=== PATIENT | female | born 1940 | race Caucasian/White ===

== ENCOUNTER 2018-05-08 03:28 | Emergency (ER) | payer MEDICARE, MEDICAID ==
[~2018-05-08] VITALS: Ht 170.2 cm; Wt 65.8 kg
[2018-05-08] MEDS ORDERED: SODIUM CHLORIDE 0.9% 500 ML IV ONE (07:23)
[2018-05-08] MEDS ORDERED: SODIUM CHLORIDE 0.9% 250 ML IV ONE (07:23)
[2018-05-08 07:49] LABS: Basophils # (auto) 0 uL; Basophils % (auto) 0.5 % (0.0-2.0); Eosinophils # (auto) 0.2 uL; Eosinophils % (auto) 2.9 % (0.0-7.0); Hemoglobin 14.7 g/dL (12.2-16.2); Lymphocytes % (auto) 17.2 % (10.0-50.0); Mean Corpuscular Hemoglobin 31.8 pg (28.0-32.0); Mean Corpuscular Hgb Conc. 34.1 g/dL (32.0-36.0); Mean Corpuscular Volume 93.3 fL (80.0-100.0); Monocytes # (auto) 0.5 uL; Monocytes % (auto) 8.1 % (0.0-12.0); Neutrophils # (auto) 4.3 uL; Neutrophils % (auto) 71.3 % (37.0-80.0); Nucleated Red Blood Cells % 0.1 %; Platelet Count (auto) 169 10^3/uL (140-450); Red Blood Cells 4.61 10^6/uL (4.0-5.20); Red Cell Distribution Width 14.3 % (11.8-14.3)
[2018-05-08 07:57] LABS: BUN/Creatinine Ratio 18.8; Calcium 8.8 mg/dL (8.5-10.1); Magnesium 2.3 mg/dL (1.6-2.6); Potassium 3.6 mmol/L (3.5-5.1)
[2018-05-08 08:00] LABS: Bilirubin, Total 0.3 mg/dL (0.2-1.0); Total Protein 7.8 g/dL (6.4-8.2)
[2018-05-08 11:13] VITALS: BP 132/81
[2018-05-08 11:48] LABS: Urine Bacteria FEW /hpf (None Seen); Urine Blood Negative /uL (Negative); Urine Specific Gravity 1.008 (1.001-1.035); Urine WBC 1 /hpf (0 - 5)
== END 2018-05-08 13:19 | disposition home or self-care (01) ==
LOC: EDBD 03:28 → ER 03:32
DX: E11.649 Type 2 diabetes mellitus with hypoglycemia without coma (principal); G93.41 Metabolic encephalopathy; M19.90 Unspecified osteoarthritis, unspecified site; J44.9 Chronic obstructive pulmonary disease, unspecified; F17.210 Nicotine dependence, cigarettes, uncomplicated; Z90.49 Acquired absence of other specified parts of digestive tract; Z90.710 Acquired absence of both cervix and uterus; Z88.2 Allergy status to sulfonamides; Z79.4 Long term (current) use of insulin
CPT/HCPCS: 36415; 71045; 80053; 81001; 83735; 85025; 93005; 99284; J7030

== ENCOUNTER 2019-11-13 17:24 | Inpatient (IN) | payer MEDICARE, MEDICAID ==
[~2019-11-13] VITALS: Ht 157.5 cm; Wt 55.8 kg
[2019-11-13 20:23] LABS: Basophils # (auto) 0 10 ^3/uL (0-0.2); Basophils % (auto) 0.3 % (0.0-2.0); Eosinophils # (auto) 0.1 10 ^3/uL (0-0.8); Eosinophils % (auto) 1.8 % (0.0-7.0); Hematocrit 38.1 % (36.0-46.0); Hemoglobin 12.8 g/dL (12.2-16.2); Lymphocytes # (auto) 0.9 10 ^3/uL (0.4-5.4); Lymphocytes % (auto) 11.2 % (10.0-50.0); Mean Corpuscular Hgb Conc. 33.6 g/dL (32.0-36.0); Mean Corpuscular Volume 98.3 fL (80.0-100.0); Monocytes # (auto) 0.1 10 ^3/uL (0-1.3); Monocytes % (auto) 1.7 % (0.0-12.0); Nucleated Red Blood Cells % 0.1 %; Platelet Count (auto) 195 10^3/uL (140-450); Red Blood Cells 3.88 10^6/uL (4.0-5.20); Red Cell Distribution Width 14.9 % (11.8-14.3); White Blood Cell 8.3 10^3/uL (4.4-10.8)
[2019-11-13 20:37] LABS: INR 1.08 (0.9-1.15); Partial Thromboplastin Time 26.4 sec (23.0-31.2)
[2019-11-13 20:39] LABS: Albumin 3.7 g/dL (3.4-5.0); Calcium 9.1 mg/dL (8.5-10.1); Potassium 4.1 mmol/L (3.5-5.1)
[2019-11-13 20:47] LABS: Bilirubin, Total 0.4 mg/dL (0.2-1.0); Total Protein 7.6 g/dL (6.4-8.2)
[2019-11-14] MEDS ORDERED: ONDANSETRON HCL 4 MG/2 ML VIAL IV PRN (00:45)
[2019-11-14] MEDS ORDERED: TEMAZEPAM 15 MG CAP PO PRN (00:45)
[2019-11-14] MEDS ORDERED: DEXTROSE (50%) 50ML SYRG IV PRN (00:45)
[2019-11-14] MEDS ORDERED: ACETAMINOPHEN 325 MG TAB PO PRN (00:45)
[2019-11-14] MEDS ORDERED: cefTRIAXone 1GM/50ML D5W 50 ML IV ONE (00:45)
[2019-11-14] MEDS ORDERED: NITROGLYCERIN 0.4 MG SL TAB SL PRN (01:15)
[2019-11-14] MEDS ORDERED: MORPHINE SULF INJ 2 MG/ML SYRINGE 1ML IV PRN (01:15)
[2019-11-14] MEDS: HYDROcodone-ACET 5/325MG TAB PO PRN ×2 (02:45→21:23)
[2019-11-14] MEDS: CLINDAMYCIN 600MG IV 50 ML IV SCH ×3 (06:13→21:22)
[2019-11-14] MEDS: InsuLIN REG 1unit/0.01ml Soln (100units/ml) SC SCH ×4 (06:17→23:53)
[2019-11-14] MEDS: ACCU-CHEK COMFORT CURVE STRIP VI SCH ×4 (06:18→23:52)
[2019-11-14] MEDS: cefTRIAXone 1GM/50ML D5W 50 ML IV SCH (09:03)
[2019-11-14] MEDS: FAMOTIDINE 20 MG TAB PO SCH ×2 (09:59→21:22)
[2019-11-14] MEDS ORDERED: BACITRACIN TOP OINT 1 UD PKG TOP ONE (10:45)
--- NOTE | 2019-11-14 16:47 | NUR ---
PATIENT ARRIVED TO THE FLOOR. NO REPORT RECEIVED. PATIENT SHOWS NO SIGNS OF DISTRESS AT THIS TIME.
[2019-11-14] MEDS ORDERED: CELE1CAP8 PO (17:08)
[2019-11-14] MEDS ORDERED: TEMA15CA PO (17:08)
[2019-11-14] MEDS ORDERED: METF-370 PO (17:08)
[2019-11-14] MEDS ORDERED: ATOR20TA50 PO (17:08)
--- NOTE | 2019-11-14 20:00 | NUR ---
Opening Shift Note Assumed care of patient, awake and alert. No S/S of distress/SOB or pain. Instructed on POC and to call for assist PRN, will continue to monitor for changes Q1hr and PRN.
[2019-11-14 22:00] VITALS: BP 109/64
[2019-11-15 05:00] VITALS: BP 120/43
[2019-11-15] MEDS: HYDROcodone-ACET 5/325MG TAB PO PRN ×2 (05:52→19:24)
[2019-11-15] MEDS: ACCU-CHEK COMFORT CURVE STRIP VI SCH ×3 (05:53→17:55)
[2019-11-15] MEDS: InsuLIN REG 1unit/0.01ml Soln (100units/ml) SC SCH ×3 (05:53→17:55)
[2019-11-15] MEDS: CLINDAMYCIN 600MG IV 50 ML IV SCH ×2 (05:53→15:06)
--- NOTE | 2019-11-15 07:38 | NUR ---
Care report given to Hawa Prasad, patient is resting no distress.
--- NOTE | 2019-11-15 07:45 | NUR ---
RECEIVED REPORT AND ASSUMED CARE OF PT. A/OX4. DENIED S/S ACUTE DISTRESS. UPDATE PT WITH POC. BED AT LOWEST POSITION. CALL LIGHT AND BELONGINGS WITHIN REACH. WILL CONT TO MONITOR.
[2019-11-15 09:00] VITALS: BP 95/62
[2019-11-15 09:37] LABS: Basophils # (auto) 0 10 ^3/uL (0-0.2); Basophils % (auto) 0.3 % (0.0-2.0); Eosinophils # (auto) 0.2 10 ^3/uL (0-0.8); Eosinophils % (auto) 2.8 % (0.0-7.0); Hematocrit 37.3 % (36.0-46.0); Hemoglobin 12.7 g/dL (12.2-16.2); Lymphocytes % (auto) 13.9 % (10.0-50.0); Mean Corpuscular Hemoglobin 33.3 pg (28.0-32.0); Mean Corpuscular Volume 97.9 fL (80.0-100.0); Monocytes # (auto) 0.3 10 ^3/uL (0-1.3); Monocytes % (auto) 3.5 % (0.0-12.0); Neutrophils # (auto) 5.8 10 ^3/uL (1.6-8.6); Neutrophils % (auto) 79.5 % (37.0-80.0); Platelet Count (auto) 229 10^3/uL (140-450); Red Blood Cells 3.81 10^6/uL (4.0-5.20); White Blood Cell 7.3 10^3/uL (4.4-10.8)
[2019-11-15] MEDS: FAMOTIDINE 20 MG TAB PO SCH ×2 (10:04→22:00)
[2019-11-15] MEDS: cefTRIAXone 1GM/50ML D5W 50 ML IV SCH (10:05)
--- NOTE | 2019-11-15 11:14 | NUR ---
WOUND CARE NOTE: Wound care in to see patient per wound care request regarding multiple wounds that are noted present on admission. Bedside nurse took photograph of patient's wounds upon admission for reference. Patient is 79 years old female with admitting diagnosis of Bilateral Foot Ulcer with Infection. Patient is resting in bed in Rm. 271B. Patient is awake, alert and oriented. Patient is ambulatory and self turning and repositioning; her Neil score is 20. Noted patient's plantar aspect of bilateral great toe (Rt. 0.8x1.5cm, Lt 1x1.5cm) has open full thickness ulcer with no measurable depth. R great toe wound has dark brown callous, L plantar great toe wound has clean red wound bed, kota wound is yellow hyperkeratotic ring. Her dorsal R 2nd toe also noted with 1.2x1.5cm open ulcer.Minimal serous drainage noted, no odor noted, Her Rt index finger palmar aspect also noted with 1.2x1.5cm open ulcer with red clean wound bed, pink kota wound. Patient reported that she has had the wounds for four months, will get better and open again. She added that she' seen by Dr. Saenz and sent to E.D. Cleansed patient's wounds with wound cleanser, patted dry with gauze, applied Thera honey gel, covered L index finger and R 2nd toe wounds with Band aid. Covered bilateral plantar great toe with Opti foam and secured with Co Ban. Patient tolerated well and denies any other wound. Bed in low position, call johnson on hand with all safety precautions in placed. RECOMMENDATION: Nursing to continue with Daily/PRN dressing change to multiple wounds per MD order,Podiatry consult, redistribute pressure points with pillows, continue monitoring by wound care while patient is hospitalized Addendum: 11/15/19 at 1609 by Maribel Vega RN Amended: Links added.
[2019-11-15 11:19] LABS: BUN/Creatinine Ratio 13.1; Potassium 4.4 mmol/L (3.5-5.1)
[2019-11-15 13:00] VITALS: BP 101/67
[2019-11-15 20:00] VITALS: BP 114/72
[2019-11-15 21:55] VITALS: BP 110/69
--- NOTE | 2019-11-15 22:00 | NUR ---
Clidamycin 2200 dose not given because no IV access, An Iv was placed but then it was little late. Next dose was given.
[2019-11-16] MEDS: InsuLIN REG 1unit/0.01ml Soln (100units/ml) SC SCH ×4 (00:25→18:15)
[2019-11-16 05:00] VITALS: BP 128/61
[2019-11-16] MEDS: CLINDAMYCIN 600MG IV 50 ML IV SCH ×3 (05:57→22:06)
[2019-11-16] MEDS: ACCU-CHEK COMFORT CURVE STRIP VI SCH ×4 (06:25→18:14)
[2019-11-16 09:00] VITALS: BP 96/35
[2019-11-16] MEDS: cefTRIAXone 1GM/50ML D5W 50 ML IV SCH (10:03)
[2019-11-16] MEDS: FAMOTIDINE 20 MG TAB PO SCH ×2 (10:03→22:05)
--- NOTE | 2019-11-16 11:56 | NUR ---
Consult Consider adding MVI and Vitamin C 500 mg BID Est energy needs 2168-0466 kcal (25-30 kcal/kg BW 57.6g) Est protein needs 58-64g (1-1.1g/kg BW 57.6kg, r/t wounds, questionable wt loss) will reassess prn. Addendum: 11/16/19 at [address] Amended: Links added.
[2019-11-16] MEDS: HYDROcodone-ACET 5/325MG TAB PO PRN ×3 (12:02→22:05)
[2019-11-16 13:00] VITALS: BP 116/58
--- NOTE | 2019-11-16 19:05 | NUR ---
Opening Shift Note Assumed care of patient, awake and alert. No S/S of distress/SOB or pain. Instructed on POC and to call for assist PRN, will continue to monitor for changes Q1hr and PRN. Bed locked in lowest position, HOB elevated at least 30 degrees, side rails up x 2 and call light is within reach.
[2019-11-16 22:00] VITALS: BP 103/60
--- NOTE | 2019-11-16 23:00 | NUR ---
IV insertion IV access obtained, via clean sterile technique by inserting 22 gauge catheter at Right Hand after 1 attempt. IV secured properly. No trauma to site. Patient tolerated well. Addendum: 11/17/19 at 0608 by CECILIA ROSE RN RN LEFT HAND
[2019-11-17] MEDS: ACCU-CHEK COMFORT CURVE STRIP VI SCH ×5 (00:29→23:35)
[2019-11-17] MEDS: InsuLIN REG 1unit/0.01ml Soln (100units/ml) SC SCH ×5 (00:29→23:48)
--- NOTE | 2019-11-17 04:31 | NUR ---
UA UA collected and sent to lab
[2019-11-17 05:04] LABS: Urine WBC None Seen /hpf (0 - 5)
[2019-11-17 05:20] LABS: Urine Bacteria NONE SEEN /hpf (None Seen); Urine Blood Negative /uL (Negative); Urine Specific Gravity 1.007 (1.001-1.035)
[2019-11-17] MEDS: CLINDAMYCIN 600MG IV 50 ML IV SCH ×3 (06:15→22:06)
[2019-11-17 06:59] VITALS: BP 137/73
--- NOTE | 2019-11-17 07:28 | NUR ---
CLOSING SHIFT NOTE ENDORSED CARE TO DAY SHIFT RN
[2019-11-17] MEDS: FAMOTIDINE 20 MG TAB PO SCH ×2 (08:50→22:06)
[2019-11-17 08:55] VITALS: BP 120/71
[2019-11-17] MEDS: cefTRIAXone 1GM/50ML D5W 50 ML IV SCH (09:09)
[2019-11-17 15:04] VITALS: BP 110/65
[2019-11-17] MEDS: HYDROcodone-ACET 5/325MG TAB PO PRN ×2 (15:34→20:31)
[2019-11-17 17:00] VITALS: BP 114/87
--- NOTE | 2019-11-17 17:09 | NUR ---
PT REFUSED BLE ANGIOGRAM. DR MOREIRA AWARE. TO MRI AND MRI PERSONELL STATED THAT PT COMPLAINED OF BURNING IN LOWER EXTREMITIES, SO COULD NOT PROCEED WITH MRI.
--- NOTE | 2019-11-17 17:45 | NUR ---
PT OFF FLOOR TO SMOKE MULTIPLE TIMES, UNABLE TO HANG ABX OR GET BLOOD SUGAR AT THIS TIME
[2019-11-17 21:59] VITALS: BP 116/69
[2019-11-18 05:00] VITALS: BP_SYST 124; BP_SYST 95; BP_DIAS 53; BP_DIAS 71
[2019-11-18] MEDS: ACCU-CHEK COMFORT CURVE STRIP VI SCH ×3 (06:44→15:15)
[2019-11-18] MEDS: CLINDAMYCIN 600MG IV 50 ML IV SCH ×3 (06:51→21:32)
[2019-11-18] MEDS: InsuLIN REG 1unit/0.01ml Soln (100units/ml) SC SCH ×3 (06:59→18:00)
[2019-11-18] MEDS: cefTRIAXone 1GM/50ML D5W 50 ML IV SCH (09:00)
[2019-11-18 09:41] VITALS: BP 117/61
[2019-11-18] MEDS ORDERED: LORazepam 2MG/ML-1ML VIAL IV ONE (10:15)
--- NOTE | 2019-11-18 10:22 | NUR ---
C/O BLEEDING TO THE RIGHT GREAT TOE. 2X2 GAUZE AND PAPER TAPE APPLIED
[2019-11-18] MEDS: FAMOTIDINE 20 MG TAB PO SCH ×2 (11:00→21:31)
[2019-11-18 13:23] VITALS: BP 92/76
--- NOTE | 2019-11-18 16:27 | NUR ---
PT WAS OUT OF HER ROOM WHEN RADIOLOGY CAME TO GET HER FOR MRI. SHE TRAVELS ABOUT HOSPITAL OFTEN. SHE RETURNS FROM MRI. UNABLE TO OBTAIN SUITABLE IMAGES DUE TO HER NOT REMAINING STILL EVEN WITH 1MG ATIVAN IV ON ADMINISTERED JUST PRIOR TO HER LEAVING FOR RADIOLOGY
[2019-11-18 16:36] VITALS: BP 124/64
--- NOTE | 2019-11-18 20:10 | NUR ---
PATIENT'S IV IS MISSING. STARTED A NEW IV ACCESS ON THE RIGHT WRIST, GAUGE 22. BENIGN AND PATENT.
[2019-11-18 22:00] VITALS: BP 117/62
--- NOTE | 2019-11-18 22:40 | NUR ---
PATIENT KEPT GETTING OUT OF BED. PATIENT ON AND OFF CONFUSION. SHE WAS BITING ON HER IV ACCESS WELL. REORIENTATION DONE. STAYED WITH PATIENT FOR SAFETY. VERY UNCOOPERATIVE. PAGED CHARGE NURSE AND MADE HIM AWARE OF THE SITUATION.
[2019-11-19 05:28] VITALS: BP 112/58
[2019-11-19] MEDS: ACCU-CHEK COMFORT CURVE STRIP VI SCH ×3 (05:53→12:00)
[2019-11-19] MEDS: InsuLIN REG 1unit/0.01ml Soln (100units/ml) SC SCH ×2 (05:53)
[2019-11-19] MEDS: CLINDAMYCIN 600MG IV 50 ML IV SCH (06:00)
[2019-11-19 09:00] VITALS: BP 108/45
--- NOTE | 2019-11-19 09:30 | NUR ---
PT NOW LOCATED IN ROOM 274A WITH SITTER IN ROOM. MOSTLY SLEEPING THIS AM.
[2019-11-19] MEDS: cefTRIAXone 1GM/50ML D5W 50 ML IV SCH (10:30)
[2019-11-19] MEDS ORDERED: NICOTINE 7MG/24HR TOPICAL PATCH TD ONE (10:45)
[2019-11-19 13:00] VITALS: BP 102/64
--- NOTE | 2019-11-19 13:00 | NUR ---
DETAILED CONVERSATION RE: DZ PROCESS CREATING DECREASED BLOOD FLOW TO EXTREMITIES. USED EXAMPLE OF ARTERIAL FLOW LIKE PLUMBING THAT BECOMES CLOGGED. DISCUSSED HOW RESTORING BLOOD FLOW COULD BE POSSIBLE. EXPLAINED HOW ANGIOGRAM WORKS. EXPLAINED POSSIBILITY OF OUT PATIENT TREATMENT OF PTCA STENTING. PT IS AGREEABLE TO TRY OUT PT TO SEE IF RESULTS COULD BE HAD. DISCUSSED THE PHYSICAL EFFECTS OF SMOKING ON HER PVD. OFFERED PRACTICAL STRATEGIES TO STOP SMOKING. PLACED NICOTINE PATCH. GAINED PERMISSION TO SPEAK WITH HER DAUGHTER RADHA WHO HAS CALLED FOR INFORMATION ABOUT HER COURSE OF CARE. CALL TO PT'S SISTER TATIANNA NO ANSWER. MESSAGE LEFT ASKING TO BRING CLOTHING FOR THE PATIENT TO WEAR HOME.
--- NOTE | 2019-11-19 13:52 | NUR ---
assessment Patient is a 79 year old female who is on and off confusion. Patient is very irritated due to needing to smoke. Per patient sister Jenna patient is a 60+ year smoker. Patients PCP is Dr Shultz and Dr Saenz. Patient has a rollator, fww, cane and oxygen for home use. Patient is on service with [facility], [facility]. Patient is to resume with [facility] on discharge. Patients sister Jenna will transport patient home today at 4pm. Jenna verbalized understanding and agreed to discharge plan home. Addendum: 11/19/19 at 1358 by Sofiya SIDHU Amended: Links added.
--- NOTE | 2019-11-19 16:38 | NUR ---
PT DRESSES INTO CLOTHING PROVIDED BY FAMILY. DC INSTRUCTIONS PROVIDED. HAS ALL PERSONAL BELONGINGS. TO WAITING PRIVATE VEHICLE IN .
[2019-11-20] MEDS ORDERED: NICOTINE 7MG/24HR TOPICAL PATCH TD SCH (10:00)
== END 2019-11-19 16:30 | disposition home health service (06) | DRG 380 ==
LOC: ER 17:24 → OVERFLOW 17:25 → WEST WING 11-14 16:55
PROVIDERS: ADMIT Nurse Practitioner; ATTEND Family Medicine
DX: E11.621 Type 2 diabetes mellitus with foot ulcer (principal); L97.519 Non-pressure chronic ulcer of other part of right foot with unspecified severity; L97.529 Non-pressure chronic ulcer of other part of left foot with unspecified severity; E11.51 Type 2 diabetes mellitus with diabetic peripheral angiopathy without gangrene; E11.65 Type 2 diabetes mellitus with hyperglycemia; B99.8 Other infectious disease; J44.9 Chronic obstructive pulmonary disease, unspecified; I70.201 Unspecified atherosclerosis of native arteries of extremities, right leg; E78.5 Hyperlipidemia, unspecified; E78.00 Pure hypercholesterolemia, unspecified; F17.210 Nicotine dependence, cigarettes, uncomplicated; I10 Essential (primary) hypertension; L08.9 Local infection of the skin and subcutaneous tissue, unspecified; M19.90 Unspecified osteoarthritis, unspecified site; M85.80 Other specified disorders of bone density and structure, unspecified site; Z53.20 Procedure and treatment not carried out because of patient's decision for unspecified reasons; Z83.3 Family history of diabetes mellitus; Z90.710 Acquired absence of both cervix and uterus; Z91.19 Patient's noncompliance with other medical treatment and regimen; Z90.49 Acquired absence of other specified parts of digestive tract; Z88.2 Allergy status to sulfonamides; Z79.4 Long term (current) use of insulin; M84.475A Pathological fracture, left foot, initial encounter for fracture
CPT/HCPCS: 36415; 71045; 73630; 73700; 80048; 80053; 81001; 82962; 83036; 85025; 85610; 85652; 85730; 86850; 86900; 86901; 87040; 87205; 93005; 93925; G0378; J0696; J1815; J3490

== ENCOUNTER 2021-01-19 04:33 | Emergency (ER) | payer MEDICARE, MEDICAID ==
[~2021-01-19] VITALS: Ht 165.1 cm; Wt 54.4 kg
[~2021-01-19 04:33] MED LIST: ATOR20TA50 PO; CELE1CAP8 PO; METF-370 PO; TEMA15CA PO
[2021-01-19] MEDS ORDERED: SODIUM CHLORIDE 0.9% 1,000 ML IV ONE (07:15)
[2021-01-19 07:40] LABS: Basophils # (auto) 0 10 ^3/uL (0-0.2); Basophils % (auto) 0.6 % (0.0-2.0); Eosinophils # (auto) 0.1 10 ^3/uL (0-0.8); Eosinophils % (auto) 1.7 % (0.0-7.0); Hematocrit 41.6 % (36.0-46.0); Hemoglobin 13.9 g/dL (12.2-16.2); Lymphocytes # (auto) 0.9 10 ^3/uL (0.4-5.4); Lymphocytes % (auto) 16.9 % (10.0-50.0); Mean Corpuscular Hemoglobin 31.7 pg (28.0-32.0); Mean Corpuscular Hgb Conc. 33.5 g/dL (32.0-36.0); Mean Corpuscular Volume 94.7 fL (80.0-100.0); Monocytes # (auto) 0.3 10 ^3/uL (0-1.3); Monocytes % (auto) 5.6 % (0.0-12.0); Neutrophils % (auto) 75.2 % (37.0-80.0); Nucleated Red Blood Cells % 0.1 %; Red Cell Distribution Width 14.8 % (11.8-14.3); White Blood Cell 5.3 10^3/uL (4.4-10.8)
[2021-01-19 07:54] LABS: Magnesium 2.2 mg/dL (1.6-2.6); Potassium 4.5 mmol/L (3.5-5.1)
[2021-01-19 07:58] LABS: Bilirubin, Total 0.2 mg/dL (0.2-1.0); Total Protein 6.3 g/dL (6.4-8.2)
[2021-01-19 08:24] LABS: Urine Bacteria FEW /hpf (None Seen); Urine Blood Negative /uL (Negative); Urine Specific Gravity 1.011 (1.001-1.035); Urine WBC 41 /hpf (0 - 5)
[2021-01-19 15:11] VITALS: BP 117/57
== END 2021-01-19 17:58 | disposition home or self-care (01) ==
LOC: ER 04:33 → EDBD 04:33 → ER 17:58
DX: E11.649 Type 2 diabetes mellitus with hypoglycemia without coma (principal); G93.41 Metabolic encephalopathy; N39.0 Urinary tract infection, site not specified; E03.9 Hypothyroidism, unspecified; E78.5 Hyperlipidemia, unspecified; J44.9 Chronic obstructive pulmonary disease, unspecified; F17.210 Nicotine dependence, cigarettes, uncomplicated; Z90.49 Acquired absence of other specified parts of digestive tract; Z90.710 Acquired absence of both cervix and uterus; Z90.89 Acquired absence of other organs; Z79.899 Other long term (current) drug therapy; Z88.2 Allergy status to sulfonamides
CPT/HCPCS: 36415; 71045; 80053; 81001; 82962; 83735; 84443; 85025; 93005; 96360; 96361; 99285; J7030

== ENCOUNTER 2021-11-26 11:21 | Inpatient (IN) | payer MEDICARE, MEDICAID ==
[2021-11-26] VITALS (12 sets, daily range): BP systolic 101–121; BP diastolic 45–66
[~2021-11-26] VITALS: Ht 157.5 cm; Wt 53.2 kg
[2021-11-26] MEDS ORDERED: SODIUM CHLORIDE 0.9% 500 ML IVB ONE (12:45)
[2021-11-26] MEDS ORDERED: SODIUM CHLORIDE 0.9% 1,000 ML IV ONE (12:45)
[2021-11-26 13:17] LABS: Basophils # (auto) 0 10 ^3/uL (0-0.2); Eosinophils # (auto) 0 10 ^3/uL (0-0.8); Lymphocytes # (auto) 0.4 10 ^3/uL (0.4-5.4); Monocytes # (auto) 0 10 ^3/uL (0-1.3); Neutrophils # (auto) 0.7 10 ^3/uL (1.6-8.6)
[2021-11-26 13:19] LABS: Basophils % (auto) 0.2 % (0.0-2.0); Eosinophils % (auto) 4.3 % (0.0-7.0); Hematocrit 16.5 % (36.0-46.0); Lymphocytes % (auto) 33.7 % (10.0-50.0); Mean Corpuscular Hemoglobin 31.4 pg (28.0-32.0); Mean Corpuscular Hgb Conc. 34.3 g/dL (32.0-36.0); Mean Corpuscular Volume 91.7 fL (80.0-100.0); Monocytes % (auto) 1.1 % (0.0-12.0); Neutrophils % (auto) 60.7 % (37.0-80.0); Nucleated Red Blood Cells % 0.3 %
[2021-11-26 13:30] LABS: Hemoglobin 5.6 g/dL (12.2-16.2); Red Cell Distribution Width 20.9 % (11.8-14.3); White Blood Cell 1.1 10^3/uL (4.4-10.8)
[2021-11-26 13:35] LABS: Albumin 2.7 g/dL (3.4-5.0); Calcium 8.2 mg/dL (8.5-10.1); Magnesium 1.7 mg/dL (1.6-2.6); Potassium 3.5 mmol/L (3.5-5.1)
[2021-11-26 13:39] LABS: BUN/Creatinine Ratio 40.8; Bilirubin, Total 0.9 mg/dL (0.2-1.0); Total Protein 6.6 g/dL (6.4-8.2)
[2021-11-26] MEDS ORDERED: MORPHINE SULFATE INJ 2 MG/ml SYRG IV PRN (16:15)
[2021-11-26] MEDS ORDERED: NITROGLYCERIN 0.4 MG SL TAB SL PRN (16:15)
[2021-11-26] MEDS ORDERED: ACETAMINOPHEN 325 MG TAB PO PRN (16:15)
[2021-11-26] MEDS ORDERED: CATHFLO ACTIVASE (ALTEPLASE) 2 MG VIAL IV ONE (21:00)
[2021-11-26] MEDS: PIPERACILLIN-TAZOB 3.375GM 100 ML IV SCH (22:00)
[2021-11-26] MEDS: ASCORBIC ACID 500 MG TAB PO SCH (22:17)
[2021-11-26] MEDS: methylPREDNISolone SOD SUCC 40 MG/ML VL IV SCH (23:23)
[2021-11-27] VITALS (83 sets, daily range): BP systolic 103–147; BP diastolic 43–78
[2021-11-27] MEDS: HYDROcodone-ACET 5/325MG TAB PO PRN ×2 (00:12→23:34)
[2021-11-27] MEDS: PIPERACILLIN-TAZOB 3.375GM 100 ML IV SCH ×3 (06:00→21:34)
[2021-11-27] MEDS: methylPREDNISolone SOD SUCC 40 MG/ML VL IV SCH ×3 (06:39→21:32)
[2021-11-27] MEDS ORDERED: ENOXAPARIN SOD 40 MG/0.4 ML SYRINGE SC SCH (10:00)
[2021-11-27] MEDS: NOREPINEPHRINE 8 MG/250ML KIT 250 ML IV SCH ×2 (10:22→16:15)
[2021-11-27] MEDS: ASCORBIC ACID 500 MG TAB PO SCH ×2 (10:24→21:33)
[2021-11-27] MEDS: MULTIPLE VITAMIN TAB PO SCH (10:24)
[2021-11-27] MEDS: ZINC SULFATE 220mg CAP or TAB PO SCH (10:24)
[2021-11-27] MEDS: FILGRASTIM (TBO) 300 MCG/0.5 ML SYRG SC SCH (10:43)
[2021-11-27 13:38] LABS: Hematocrit 31.4 % (36.0-46.0); Hemoglobin 10.8 g/dL (12.2-16.2); Mean Corpuscular Hgb Conc. 34.2 g/dL (32.0-36.0); Mean Corpuscular Volume 90.7 fL (80.0-100.0); Red Blood Cells 3.46 10^6/uL (4.0-5.20); Red Cell Distribution Width 15.6 % (11.8-14.3)
[2021-11-27 13:43] LABS: Basophils % (manual) 0 (0.0-2.0); Eosinophils % (manual) 0 (0-7); Promyelocytes % 0; Reactive Lymphocytes 0
[2021-11-27 14:05] LABS: Albumin 2.8 g/dL (3.4-5.0); Calcium 7.9 mg/dL (8.5-10.1); Potassium 3.6 mmol/L (3.5-5.1)
[2021-11-27 14:09] LABS: BUN/Creatinine Ratio 38.4; Bilirubin, Total 1.4 mg/dL (0.2-1.0); Total Protein 6.6 g/dL (6.4-8.2)
[2021-11-27 14:37] LABS: Band Neutrophils % (manual) 6; Blast Cells 1; Lymphocytes % (manual) 10 (10.0-50.0); Metamyelocytes % 4; Monocytes % (manual) 2 (0-12); Myelocytes % 1
[2021-11-27] MEDS ORDERED: DEXTROSE (50%) 50ML SYRG IV PRN (15:30)
[2021-11-27] MEDS: ACCU-CHEK COMFORT CURVE STRIP VI SCH ×2 (16:22→21:33)
[2021-11-27] MEDS: InsuLIN REG 1unit/0.01ml Soln (100units/ml) SC SCH ×2 (16:24→21:33)
[2021-11-27] MEDS: Glucerna Carbsteady SHAKE Vanilla 8oz PO SCH (18:00)
[2021-11-27 18:50] LABS: Urine Bacteria FEW /hpf (None Seen); Urine Blood TRACE /uL (Negative); Urine Mucus FEW (None Seen); Urine WBC 11 /hpf (0 - 5)
[2021-11-27] MEDS: SODIUM CHLOR 0.9% PF (SALINE LOCK) 10ML VIAL/SYR IV SCH (21:32)
[2021-11-28] VITALS (10 sets, daily range): BP systolic 98–128; BP diastolic 52–71
[2021-11-28] MEDS: methylPREDNISolone SOD SUCC 40 MG/ML VL IV SCH ×3 (05:00→21:38)
[2021-11-28] MEDS: PIPERACILLIN-TAZOB 3.375GM 100 ML IV SCH ×3 (05:00→21:37)
[2021-11-28] MEDS: ACCU-CHEK COMFORT CURVE STRIP VI SCH ×4 (06:22→22:28)
[2021-11-28] MEDS: InsuLIN REG 1unit/0.01ml Soln (100units/ml) SC SCH ×4 (06:22→22:29)
[2021-11-28] MEDS: SODIUM CHLOR 0.9% PF (SALINE LOCK) 10ML VIAL/SYR IV SCH ×2 (07:38→21:38)
[2021-11-28] MEDS: Glucerna Carbsteady SHAKE Vanilla 8oz PO SCH ×3 (08:00→18:15)
[2021-11-28 08:56] LABS: White Blood Cell 9.4 10^3/uL (4.4-10.8)
[2021-11-28 08:57] LABS: Hematocrit 28.8 % (36.0-46.0); Mean Corpuscular Hemoglobin 31.4 pg (28.0-32.0); Mean Corpuscular Hgb Conc. 34.8 g/dL (32.0-36.0); Mean Corpuscular Volume 90.1 fL (80.0-100.0); Red Blood Cells 3.19 10^6/uL (4.0-5.20); Red Cell Distribution Width 15.2 % (11.8-14.3)
[2021-11-28] MEDS: MULTIPLE VITAMIN TAB PO SCH (08:58)
[2021-11-28] MEDS: ZINC SULFATE 220mg CAP or TAB PO SCH (08:58)
[2021-11-28] MEDS: ASCORBIC ACID 500 MG TAB PO SCH ×2 (08:58→21:38)
[2021-11-28] MEDS: FILGRASTIM (TBO) 300 MCG/0.5 ML SYRG SC SCH (09:02)
[2021-11-28 09:28] LABS: Basophils % (manual) 0 (0.0-2.0); Blast Cells 0; Eosinophils % (manual) 0 (0-7); Promyelocytes % 0; Reactive Lymphocytes 0
[2021-11-28 09:46] LABS: Band Neutrophils % (manual) 11; Lymphocytes % (manual) 4 (10.0-50.0); Metamyelocytes % 2; Monocytes % (manual) 4 (0-12); Myelocytes % 1
[2021-11-28 10:58] LABS: Free T4 (Free Thyroxine) 0.98 ng/dL (0.89-1.76)
[2021-11-28 10:59] LABS: Free T3 1.15 pg/mL (2.3-4.2); T3 Total 0.29 ng/mL (0.60-1.81)
[2021-11-28] MEDS: NOREPINEPHRINE 8 MG/250ML KIT 250 ML IV SCH (13:15)
[2021-11-28] MEDS: MORPHINE SULFATE INJ 2 MG/ml SYRG IV PRN ×2 (14:39→21:11)
[2021-11-29] VITALS (7 sets, daily range): BP systolic 113–128; BP diastolic 58–92
[2021-11-29] MEDS: PIPERACILLIN-TAZOB 3.375GM 100 ML IV SCH ×3 (06:20→21:31)
[2021-11-29] MEDS: methylPREDNISolone SOD SUCC 40 MG/ML VL IV SCH ×3 (06:21→21:30)
[2021-11-29] MEDS: ACCU-CHEK COMFORT CURVE STRIP VI SCH ×4 (06:51→21:31)
[2021-11-29] MEDS: InsuLIN REG 1unit/0.01ml Soln (100units/ml) SC SCH ×4 (06:52→21:25)
[2021-11-29] MEDS: SODIUM CHLOR 0.9% PF (SALINE LOCK) 10ML VIAL/SYR IV SCH ×2 (07:33→21:31)
[2021-11-29] MEDS: Glucerna Carbsteady SHAKE Vanilla 8oz PO SCH ×3 (07:33→18:00)
[2021-11-29] MEDS: MULTIPLE VITAMIN TAB PO SCH (07:56)
[2021-11-29] MEDS: OLANZapine 5 MG TAB PO SCH ×2 (07:56→21:31)
[2021-11-29] MEDS: ASCORBIC ACID 500 MG TAB PO SCH ×2 (07:56→21:31)
[2021-11-29] MEDS: ZINC SULFATE 220mg CAP or TAB PO SCH (07:56)
[2021-11-29 09:20] LABS: Albumin 2.5 g/dL (3.4-5.0); Calcium 8.3 mg/dL (8.5-10.1); Potassium 3.7 mmol/L (3.5-5.1)
[2021-11-29 09:43] LABS: BUN/Creatinine Ratio 34.4; Bilirubin, Total 1.4 mg/dL (0.2-1.0); Total Protein 5.6 g/dL (6.4-8.2)
[2021-11-29 09:45] LABS: Hemoglobin 9.6 g/dL (12.2-16.2); White Blood Cell 23.2 10^3/uL (4.4-10.8)
[2021-11-29 09:49] LABS: Hematocrit 27.5 % (36.0-46.0); Mean Corpuscular Hemoglobin 31.8 pg (28.0-32.0); Red Blood Cells 3.02 10^6/uL (4.0-5.20); Red Cell Distribution Width 15.3 % (11.8-14.3)
[2021-11-29 09:58] LABS: Basophils % (manual) 0 (0.0-2.0); Blast Cells 0; Eosinophils % (manual) 0 (0-7); Metamyelocytes % 0; Myelocytes % 0; Promyelocytes % 0; Reactive Lymphocytes 0
[2021-11-29] MEDS ORDERED: FILGRASTIM (TBO) 300 MCG/0.5 ML SYRG SC SCH (10:00)
[2021-11-29 10:27] LABS: Band Neutrophils % (manual) 31; Lymphocytes % (manual) 7 (10.0-50.0); Monocytes % (manual) 4 (0-12)
[2021-11-29] MEDS: NOREPINEPHRINE 8 MG/250ML KIT 250 ML IV SCH (12:25)
[2021-11-29] MEDS: HYDROcodone-ACET 5/325MG TAB PO PRN (21:31)
[2021-11-30] VITALS (8 sets, daily range): BP systolic 90–133; BP diastolic 63–74
[2021-11-30] MEDS: PIPERACILLIN-TAZOB 3.375GM 100 ML IV SCH ×3 (05:56→22:27)
[2021-11-30] MEDS: methylPREDNISolone SOD SUCC 40 MG/ML VL IV SCH ×3 (05:56→22:26)
[2021-11-30] MEDS: ACCU-CHEK COMFORT CURVE STRIP VI SCH ×4 (05:57→22:27)
[2021-11-30] MEDS: InsuLIN REG 1unit/0.01ml Soln (100units/ml) SC SCH ×4 (05:57→22:58)
[2021-11-30] MEDS: Glucerna Carbsteady SHAKE Vanilla 8oz PO SCH ×3 (07:35→17:37)
[2021-11-30 09:57] LABS: Hematocrit 26.6 % (36.0-46.0); Hemoglobin 8.9 g/dL (12.2-16.2); Mean Corpuscular Hemoglobin 30.5 pg (28.0-32.0); Mean Corpuscular Hgb Conc. 33.5 g/dL (32.0-36.0); Mean Corpuscular Volume 91.2 fL (80.0-100.0); Red Blood Cells 2.91 10^6/uL (4.0-5.20); Red Cell Distribution Width 16.4 % (11.8-14.3)
[2021-11-30 09:58] LABS: White Blood Cell 45.9 10^3/uL (4.4-10.8)
[2021-11-30] MEDS: OLANZapine 5 MG TAB PO SCH ×2 (10:00→22:27)
[2021-11-30] MEDS: MULTIPLE VITAMIN TAB PO SCH (10:00)
[2021-11-30] MEDS: ASCORBIC ACID 500 MG TAB PO SCH ×2 (10:00→22:27)
[2021-11-30] MEDS: ZINC SULFATE 220mg CAP or TAB PO SCH (10:00)
[2021-11-30 10:06] LABS: Basophils % (manual) 0 (0.0-2.0); Blast Cells 0; Promyelocytes % 0; Reactive Lymphocytes 0
[2021-11-30] MEDS: SODIUM CHLOR 0.9% PF (SALINE LOCK) 10ML VIAL/SYR IV SCH ×2 (11:08→22:27)
[2021-11-30 11:20] LABS: Band Neutrophils % (manual) 9
[2021-11-30 11:21] LABS: Eosinophils % (manual) 1 (0-7); Lymphocytes % (manual) 4 (10.0-50.0); Metamyelocytes % 4; Monocytes % (manual) 8 (0-12); Myelocytes % 1
[2021-11-30] MEDS: HYDROcodone-ACET 5/325MG TAB PO PRN (17:37)
[2021-12-01 04:57] VITALS: BP 136/73
[2021-12-01] MEDS: PIPERACILLIN-TAZOB 3.375GM 100 ML IV SCH ×3 (05:51→22:26)
[2021-12-01] MEDS: methylPREDNISolone SOD SUCC 40 MG/ML VL IV SCH ×3 (05:51→22:25)
[2021-12-01] MEDS: ACCU-CHEK COMFORT CURVE STRIP VI SCH ×4 (06:30→22:18)
[2021-12-01] MEDS: InsuLIN REG 1unit/0.01ml Soln (100units/ml) SC SCH ×4 (06:31→22:21)
[2021-12-01 09:00] VITALS: BP 127/70
[2021-12-01] MEDS: SODIUM CHLOR 0.9% PF (SALINE LOCK) 10ML VIAL/SYR IV SCH ×2 (09:45→22:25)
[2021-12-01] MEDS: ZINC SULFATE 220mg CAP or TAB PO SCH (09:45)
[2021-12-01] MEDS: MULTIPLE VITAMIN TAB PO SCH (09:45)
[2021-12-01] MEDS: OLANZapine 5 MG TAB PO SCH ×2 (09:46→22:26)
[2021-12-01] MEDS: Glucerna Carbsteady SHAKE Vanilla 8oz PO SCH ×3 (09:46→18:01)
[2021-12-01] MEDS: ASCORBIC ACID 500 MG TAB PO SCH ×2 (09:46→22:26)
[2021-12-01 11:33] LABS: Hepatitis B Surface Antibody Negative (Negative)
[2021-12-01 12:24] LABS: Hematocrit 26.6 % (36.0-46.0); Hemoglobin 8.9 g/dL (12.2-16.2); Mean Corpuscular Hemoglobin 30.7 pg (28.0-32.0); Mean Corpuscular Hgb Conc. 33.6 g/dL (32.0-36.0); Mean Corpuscular Volume 91.5 fL (80.0-100.0); Red Blood Cells 2.91 10^6/uL (4.0-5.20); Red Cell Distribution Width 16.3 % (11.8-14.3)
[2021-12-01 12:32] LABS: White Blood Cell 63.5 10^3/uL (4.4-10.8)
[2021-12-01 12:34] LABS: Basophils % (manual) 0 (0.0-2.0); Blast Cells 0; Reactive Lymphocytes 0
[2021-12-01 13:00] VITALS: BP 120/77
[2021-12-01 13:17] LABS: Band Neutrophils % (manual) 7; Eosinophils % (manual) 1 (0-7); Lymphocytes % (manual) 10 (10.0-50.0); Metamyelocytes % 8; Monocytes % (manual) 10 (0-12); Myelocytes % 3; Promyelocytes % 1
[2021-12-01] MEDS ORDERED: SUCR1SUS5 PO (13:54)
[2021-12-01] MEDS ORDERED: PANT40TA2 PO (13:54)
[2021-12-01 16:56] VITALS: BP 144/77
[2021-12-01] MEDS: SUCRALFATE 1 GM/10 ML ORAL SUSP PO SCH ×2 (17:59→22:25)
[2021-12-01 22:00] VITALS: BP 134/76
[2021-12-02 05:00] VITALS: BP 134/63
[2021-12-02] MEDS: methylPREDNISolone SOD SUCC 40 MG/ML VL IV SCH ×2 (05:59→14:00)
[2021-12-02] MEDS: PIPERACILLIN-TAZOB 3.375GM 100 ML IV SCH (06:02)
[2021-12-02] MEDS: InsuLIN REG 1unit/0.01ml Soln (100units/ml) SC SCH ×2 (06:20→11:30)
[2021-12-02] MEDS: ACCU-CHEK COMFORT CURVE STRIP VI SCH ×2 (06:20→11:30)
[2021-12-02] MEDS: SUCRALFATE 1 GM/10 ML ORAL SUSP PO SCH ×2 (06:21→10:14)
[2021-12-02] MEDS: Glucerna Carbsteady SHAKE Vanilla 8oz PO SCH ×2 (07:50→11:42)
[2021-12-02 09:00] VITALS: BP 148/75
[2021-12-02] MEDS: SODIUM CHLOR 0.9% PF (SALINE LOCK) 10ML VIAL/SYR IV SCH (10:00)
[2021-12-02] MEDS ORDERED: PANTOPRAZOLE 40 MG TAB PO SCH (10:00)
[2021-12-02] MEDS: MULTIPLE VITAMIN TAB PO SCH (10:08)
[2021-12-02] MEDS: ASCORBIC ACID 500 MG TAB PO SCH (10:10)
[2021-12-02] MEDS: OLANZapine 5 MG TAB PO SCH (10:10)
[2021-12-02] MEDS: ZINC SULFATE 220mg CAP or TAB PO SCH (10:11)
== END 2021-12-02 14:00 | disposition hospice, inpatient (51) | DRG 871 ==
LOC: EDBD 11:21 → ER 11:27 → TELE 16:06 → ICU WEST 20:10 → TELE-WESTW 11-29 16:10
PROVIDERS: ADMIT Internal Medicine; ATTEND Internal Medicine
PROC: 30233N1 Transfusion of Nonautologous Red Blood Cells into Peripheral Vein, Percutaneous Approach (ICD-10-PCS; 2021-11-26)
PROC: 05HA33Z Insertion of Infusion Device into Left Brachial Vein, Percutaneous Approach (ICD-10-PCS; 2021-11-26)
PROC: B54NZZA Ultrasonography of Left Upper Extremity Veins, Guidance (ICD-10-PCS; 2021-11-26)
PROC: 30233R1 Transfusion of Nonautologous Platelets into Peripheral Vein, Percutaneous Approach (ICD-10-PCS; principal; 2021-11-27)
PROC: 05H933Z Insertion of Infusion Device into Right Brachial Vein, Percutaneous Approach (ICD-10-PCS; 2021-11-28)
PROC: B54MZZA Ultrasonography of Right Upper Extremity Veins, Guidance (ICD-10-PCS; 2021-11-28)
DX: A41.9 Sepsis, unspecified organism (principal); G93.41 Metabolic encephalopathy; J96.01 Acute respiratory failure with hypoxia; D61.818 Other pancytopenia; E44.0 Moderate protein-calorie malnutrition; L97.919 Non-pressure chronic ulcer of unspecified part of right lower leg with unspecified severity; N39.0 Urinary tract infection, site not specified; K92.2 Gastrointestinal hemorrhage, unspecified; E03.9 Hypothyroidism, unspecified; F03.90 Unspecified dementia, unspecified severity, without behavioral disturbance, psychotic disturbance, mood disturbance, and anxiety; I10 Essential (primary) hypertension; I27.20 Pulmonary hypertension, unspecified; J44.9 Chronic obstructive pulmonary disease, unspecified; E11.51 Type 2 diabetes mellitus with diabetic peripheral angiopathy without gangrene; F17.210 Nicotine dependence, cigarettes, uncomplicated; Z20.822 Contact with and (suspected) exposure to COVID-19; I25.10 Atherosclerotic heart disease of native coronary artery without angina pectoris; M19.90 Unspecified osteoarthritis, unspecified site; I95.9 Hypotension, unspecified; M81.0 Age-related osteoporosis without current pathological fracture; Z83.3 Family history of diabetes mellitus; Z68.20 Body mass index [BMI] 20.0-20.9, adult; Z90.49 Acquired absence of other specified parts of digestive tract; Z90.710 Acquired absence of both cervix and uterus; Z88.2 Allergy status to sulfonamides
CPT/HCPCS: 36415; 36430; 70450; 71045; 80053; 81001; 82270; 82962; 83615; 83735; 84436; 84439; 84443; 84480; 84481; 85007; 85025; 85027; 85045; 86038; 86703; 86704; 86706; 86803; 86850; 86880; 86900; 86901; 86920; 87081; 87086; 87088; 87340; 93005; 93306; 96360; 96361; 99291; G0378; J1447; J1815; J2543